=== PATIENT | female | born 1995 | race American Indian/Alaskan Native ===

== ENCOUNTER 2018-09-10 17:42 | Outpatient (CLI) | payer MEDICAID ==
[2018-09-10 19:01] VITALS: BP 102/55
--- NOTE | 2018-09-10 20:37 | Ultrasound Report ---
FINAL REPORT PROCEDURE: Limited obstetrical ultrasound. TECHNIQUE: Real-time limited sonographic examination was performed for evaluation of size, pos ition, heartbeat, fluid volume for each fetus with image documentation (1 or more fetuses). CPT 7681 5 HISTORY: Evaluate amniotic fluid index. COMPARISON: No prior studies are available for comparison. FINDINGS: There is a single viable fetus in cephalic presentation. Cardiac activity is documented at 139 beats per minute. The placenta is anterior in location, grade 2. The amniotic fluid volume appears normal. The amniotic fluid index measures 11.4 centimeters. IMPRESSION: Viable intrauterine fetus. Amniotic fluid index of 11.4 centimeters.
--- NOTE | 2018-09-10 20:38 | Ultrasound Report ---
FINAL REPORT PROCEDURE: Ultrasound biophysical profile without nonstress test. TECHNIQUE: Sonographic evaluation for breathing, movement, tone, and amniotic flui d volume was performed. CPT 85455 HISTORY: well being. COMPARISON: No prior studies are available for comparison. FINDINGS: Amniotic fluid volume: 2. breathin. movement: 2. tone: 2. Score: 8 of 8. IMPRESSION: Normal biophysical profile.
--- NOTE | 2018-09-11 06:01 | Progress Note ---
Assessment and Plan A: at 39 1/7 weeks gestation with reassuring surveillance (reactive NST, BPP 8/8, normal ROSINA). P: Discussed with patient in detail daily movement counting, need to perform, how to perform. Advised patient to follow up with [facility] this week (pt. has scheduled appointment). Warning signs and signs of labor discussed with pt. Subjective - Subjective Date of service: 09/10/18 Principal diagnosis: at 39 1/7 weeks gestation; decreased movement Interval history: Triage note for 09/10/18: 22 year old presents to L&D triage complaining of slightly decreased movement today. Patient states she is not performing daily movement counting. Patient states subjectively movement has been decreased today. Patient denies abdominal pain, regular contractions, vaginal bleeding, or leaking of fluid. Patient denies falls or abdominal trauma. Patient states she receives regular care at [facility]. Patient reports: no loss of fluid, no vaginal bleeding, no contractions Objective - Vital Signs Vital Signs: Vital Signs - 12hr 09/10/18 09/10/18 09/10/18 18:07 18:09 19:01 Temperature 98.3 F Pulse Rate 88 88 87 Respiratory 18 Rate Blood Pressure 113/58 102/55 Blood Pressure 113/58 [Left] 09/10/18 19:10 Temperature 98.9 F Pulse Rate Respiratory Rate Blood Pressure Blood Pressure [Left] - Exam Narrative Exam: Reactive NST. BPP 8/8. ROSINA 11.4 cm. Patient states she feels active movement while here in triage today. Abdomen: Present: normal appearance, soft. Absent: distention, tenderness, guarding, rigidity Uterus: Present: normal, fundal height above umbilicus FHR: category 1 Uterine Contraction Monitor Mode: External Cervical Dilatation: 3 (Exam by RN) Cervical Effacement Percentage: 50 station: -3 Uterine Contraction Pattern: Absent Extremities: normal
== END 2018-09-10 20:15 | disposition home or self-care (01) ==
LOC: TRG 17:42
PROVIDERS: ATTEND Obstetrics & Gynecology
DX: O47.1 False labor at or after 37 completed weeks of gestation (principal); Z3A.39 39 weeks gestation of pregnancy
CPT/HCPCS: 76815; 76819

== ENCOUNTER 2018-09-11 14:28 | Inpatient (IN) | payer MEDICAID ==
[2018-09-11] MEDS ORDERED: LACTATED RINGERS 1,000 ML ONE (16:09)
[2018-09-11] MEDS ORDERED: SUBLIMAZE IV ONE (16:20)
[2018-09-11] MEDS ORDERED: SUBLIMAZE ONE (16:27)
[2018-09-11 16:32] LABS: Basophils % (Auto) 0.1 % (0.0-1.8); Eosinophils % (Auto) 0.3 % (0.0-4.3); Hematocrit 34.9 % (30.3-42.9); Hemoglobin 11.8 gm/dl (10.1-14.3); Lymphocytes # (Auto) 1.5 K/mm3 (1.2-5.4); Lymphocytes % (Auto) 19.2 % (13.4-35.0); Mean Corpuscular HGB Conc 34 % (30-34); Mean Corpuscular Volume 94 fl (79-97); Monocytes # (Auto) 0.8 K/mm3 (0.0-0.8); Monocytes % (Auto) 10.2 % (0.0-7.3); Platelet Count 179 K/mm3 (140-440); Red Blood Count 3.71 M/mm3 (3.65-5.03); Red Cell Distribution Width 13.4 % (13.2-15.2)
[2018-09-11] MEDS ORDERED: NARCAN 2 MG/2 ML IV PRN (17:02)
[2018-09-11] MEDS ORDERED: MARCAINE 0.25% INFILTRATI ONE (17:09)
[2018-09-11] MEDS ORDERED: fentaNYL-BUPIV 2 MCG/ML-0.125% 200 MCG/100 ML BAG EPIDURAL ONE (17:13)
[2018-09-11] MEDS: LACTATED RINGERS 1,000 ML IV SCH ×2 (17:21→19:29)
--- NOTE | 2018-09-11 17:21 | Anesthesia Consultation ---
Anesthesia Consult and Med Hx - Airway Anesthetic Teeth Evaluation: Good ROM Head & Neck: Adequate Mental/Hyoid Distance: Adequate Mallampati Class: Class II Intubation Access Assessment: Good - Pulmonary Exam CTA: Yes - Cardiac Exam Cardiac Exam: RRR - Pre-Operative Health Status ASA Pre-Surgery Classification: ASA2 Proposed Anesthetic Plan: Epidural - Pulmonary Hx Smoking: No Hx Asthma: No Hx Respiratory Symptoms: No SOB: No COPD: No Home Oxygen Therapy: No Hx Pneumonia: No Hx Sleep Apnea: No - Cardiovascular System Hx Hypertension: No Hx Coronary Artery Disease: No Hx Heart Attack/AMI: No Hx Angina: No Hx Percutaneous Transluminal Coronary Angioplasty (PTCA): No Hx Cardia Arrhythmia: No Hx Pacemaker: No Hx Internal Defibrillator: No Hx Valvular Heart Disease: No Hx Heart Murmur: No - Central Nervous System Hx Neuromuscular Disorder: No Hx Seizures: No CVA: No Hx Back Pain: No Hx Psychiatric Problems: No - Gastrointestinal Hx Ulcer: No Hx Gastroesophageal Reflux Disease: No - Endocrine Hx Renal Disease: No Hx End Stage Renal Disease: No Hx Cirrhosis: No Hx Liver Disease: No Hx Insulin Dependent Diabetes: No Hx Non-Insulin Dependent Diabetes: No Hx Thyroid Disease: No Hx Hypothyroidism: No Hx Hyperthyroidism: No - Hematic Hx Anemia: No Hx Sickle Cell Disease: No - Other Systems Hx Alcohol Use: No Hx Substance Use: No Hx Cancer: No Hx Obesity: No
--- NOTE | 2018-09-11 17:22 | Anesthesia Day of Surgery ---
Anesthesia Day of Surgery - Day of Surgery Patient Examined: Yes Patient H&P Reviewed: Yes Patient is NPO: Yes Beta Blockers: No Cardiac Clearance: Yes Pulmonary Clearance: Yes Haile's Test: N/A
[2018-09-11] MEDS ORDERED: fentaNYL-BUPIV 2 MCG/ML-0.125% 200 MCG/100 ML BAG EPIDURAL SCH (18:00)
--- NOTE | 2018-09-11 18:02 | History and Physical Report ---
History of Present Illness Date of examination: 09/11/18 Date of admission: 09/11/18 16:37 Chief complaint: Contractions History of present illness: 22yo G 2 P 1 0 0 1 @ 39 weeks 2 days here with c/o UCs since 11am. She reports +FMs but denies VB or LOF. She is a [facility] pt who initiated care at 9 weeks gestation by LMP. 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 Result not documented), and anemia (on iron therapy). Labs: O pos, Antibody Screen neg, RI, VDRL NR, HBsAg neg, HIV neg, MSAFP neg, GBS neg. Past History Past Medical History: no pertinent history Past Surgical History: no surgical history PLANNING TECHNICIAN History: chlamydia, herpes, trichomonas Family/Genetic History: none Social history: single, lives with family, full code. denies: smoking, alcohol abuse, prescription drug abuse, IV drug use - Obstetrical History Expected Date of Delivery: 09/16/18 Actual Gestation: 39 Week(s) 2 Day(s) : 2 Para: 1 Hx # Term Pregnancies: 1 Number of Pregnancies: 0 Spontaneous Abortions: 0 Induced : 0 Number of Living Children: 1 #1 Infant Gender: Male year: [birth year]) Birthweight: 3.289 kg (7 lbs 4 oz) Method of Delivery: Vaginal Gestational age at delivery: 41 Complications: none Medications and Allergies Allergies Allergy/AdvReac Type Severity Reaction Status Date / Time acetaminophen [From Percocet] Allergy Hives Verified 09/11/18 15:12 oxycodone [From Percocet] Allergy Hives Verified 09/11/18 15:12 Home Medications Medication Instructions Recorded Confirmed Last Taken Type Pnv,Calcium 72/Iron/Folic Acid 1 tab PO DAILY 09/11/18 09/11/18 09/10/18 09:00 History [Pnv Plus Multivit Tab] Active Meds: Active Medications Ephedrine Sulfate (Ephedrine Sulfate) 10 mg IV Q2M PRN PRN Reason: Hypotension Last Admin: 09/11/18 17:40 Dose: 10 mg Documented by: Lactated Ringer's (Lactated Ringers) 1,000 mls @ 125 mls/hr IV DIRECT DWAIN Last Admin: 09/11/18 17:21 Dose: 125 mls/hr Documented by: Fentanyl/Bupivacaine/Sodium Chlor (Fentanyl-Bupiv 2 Mcg/Ml-0.125%) 200 mcg in 100 mls @ 12 mls/hr EPIDURAL TITR DWAIN; Protocol Naloxone HCl (Narcan 2 Mg/2 Ml) 0.2 mg IV Q5M PRN PRN Reason: Respiratory sedation Review of Systems All systems: negative - Vital Signs Vital signs: Vital Signs Pulse BP 88 109/69 09/11/18 15:18 09/11/18 15:18 Temp Pulse Resp BP Pulse Ox 98.3 F 78 16 108/61 99 09/11/18 15:44 09/11/18 17:58 09/11/18 17:14 09/11/18 17:52 09/11/18 17:58 - Physical Exam Genitourinary (Female): Positive: normal external genitalia, normal perenium. Negative: perineal/vulvar lesions - Obstetrical FHR: category 2 FHR comments: baseline 140, moderate variability, 15x15 accels, variable/early decels Cervical Dilatation: 6 (per RN) Cervical Effacement Percentage: 90 (per RN) station: -2 (per RN) Uterine Contraction Frequency (min): 2-3 Uterine Contraction Pattern: Regular Results Result Diagrams: 09/11/18 16:01 Abnormal lab results 09/11/18 Range/Units 16:01 [place] % (Auto) 10.2 H (0.0-7.3) % Seg Neutrophils % 70.2 H (40.0-70.0) % All other labs normal. Assessment and Plan - Patient Problems (1) 39 weeks gestation of Current Visit: Yes Status: Acute (2) Active labor at term Current Visit: Yes Status: Acute Plan to address problem: Admit to L&D with routine labor orders Anticipate vaginal delivery
[2018-09-11] MEDS ORDERED: XYLOCAINE 2% INFILTRATI ONE (18:29)
[2018-09-11] MEDS ORDERED: MINERAL OIL PO PRN (18:29)
[2018-09-11] MEDS ORDERED: BRETHINE IVP PRN (18:29)
[2018-09-11] MEDS ORDERED: BRETHINE SUB-Q PRN (18:29)
--- NOTE | 2018-09-11 20:11 | Event Note ---
Addendum entered and electronically signed by DEV SCHAFER CNM 09/11/18 21:08: AROM @ 19:57 Original Note: Date: 09/11/18 S: Pt in left lateral position. Family members at bedside. Reports adequate pain relief post epidural. O: FHR: baseline 115, moderate variability, 15x15 accels, early/variable/late decels Oxygen in place via NR mask Ctxs: q2-3 mins SVE 10/100/0/BBOW A: G 2 P 1 0 0 1 @ 39w2d Category II FHR AROM @ 20:10, moderate amount of fluid, light mecomium P: Continue current management Continue intrauterine resuscitation measures Anticipate imminent vaginal delivery
--- NOTE | 2018-09-11 20:51 | Procedure Note ---
OB Delivery Note - Delivery Date of Delivery: 09/11/18 (20:20) Surgeon: DEV SCHAFER (INNA) Estimated blood loss: 200cc - Vaginal Delivery presentation: compound (left posterior arm) Delivery position: OA Intrapartum events: meconium Delivery induction: none Delivery augmentation: rupture of membranes (AROM @ 19:57) Delivery monitor: external FHT, external uterine Route of delivery: (20:20) Delivery placenta: spontaneous (20:30) Delivery cord: 3 umbilical vessels Episiotomy: none Delivery laceration: other (skid dominguez - hemostatic; not repaired) Anesthesia: intravenous, epidural Delivery comments: of a vigorous term 7 lbs 6 oz male over intact perineum on 09/11/18 @ 20:20 with NICU team at bedside. Baby placed [id number] on maternal abdomen. After 7 mins, umbilical cord double-clamped by INNA Schafer and cut by the patient. Cord blood collected. Spontaneous delivery of placenta, Sandra-side presenting at 20:30. Moderate lochia noted. Fundal massage and IV Pitocin bolus initiated. Fundus F/ML/U-1. Placenta intact; was discarded. Vaginal skid dominguez present and hemostatic so not repaired. Mom and baby in stable condition. - Infant A at 1 minute: 8 at 5 minutes: 9 Infant Gender: Female (7 lbs 6 oz (3337 gm); 19 in)
[2018-09-11] MEDS ORDERED: TUCKS PAD TP PRN (20:52)
[2018-09-11] MEDS ORDERED: PHENERGAN PR PRN (20:52)
[2018-09-11] MEDS ORDERED: ZOFRAN IV PRN (20:52)
[2018-09-11] MEDS ORDERED: MILK OF MAGNESIA PO PRN (20:52)
[2018-09-11] MEDS ORDERED: BENADRYL PO PRN (20:52)
[2018-09-11] MEDS ORDERED: LANSINOH TP PRN (20:52)
[2018-09-11] MEDS ORDERED: PHENERGAN PO PRN (20:52)
[2018-09-11] MEDS ORDERED: DULCOLAX PR PRN (20:52)
[2018-09-11] MEDS ORDERED: SODIUM CHLORIDE FLUSH SYRINGE 10 ML IV NR (21:00)
[2018-09-11] MEDS: PITOCin/NS 20 UNIT/1000ML DRIP 20 UNITS/1,000 ML BAG IV SCH ×2 (21:54→21:57)
[2018-09-11] MEDS: IBUPROFEN PO SCH (21:55)
[2018-09-11] MEDS: NORCO 5/325 PO PRN (23:34)
[2018-09-12] MEDS: IBUPROFEN PO SCH ×3 (05:34→23:02)
--- NOTE | 2018-09-12 09:32 | Post Anesthesia Evaluation ---
- Post Anesthesia Evaluation Patient Participated: Yes Airway Patent: Yes Stable Respiratory Function: Yes Nausea/Vomiting: Yes Temp > 96.8F: Yes Pain Manageable: Yes Adequeate Hydration: Yes Anesthesia Complications: No Block Receding Appropriately: Yes Patient on Ventilator: No
--- NOTE | 2018-09-12 11:02 | Progress Note ---
Assessment and Plan (1) Normal Spontaneous Vaginal Delivery Current Visit: Yes Status: Acute PPD#1 s/p -stable Routine PP orders Anticipate discharge home 09/13/2018 Subjective - Subjective Date of service: 09/12/18 Principal diagnosis: PPD#1 s/p Interval history: See H&P and delivery note Patient reports: appetite normal, voiding normally, pain well controlled, flatus, ambulating normally : doing well, other (Breast/Bottle) Objective - Vital Signs Latest vital signs: Vital Signs Temp Pulse Resp BP BP Pulse Ox 09/12/18 09:00 97.8 F 72 18 110/50 09/12/18 05:28 98.1 F 68 18 97/50 09/11/18 23:30 97.3 F L 70 18 108/60 100 09/11/18 22:03 64 112/53 09/11/18 21:55 18 09/11/18 21:47 67 88 09/11/18 21:41 67 89 09/11/18 21:35 67 100 09/11/18 21:32 59 L 111/61 09/11/18 21:30 82 100 09/11/18 21:27 64 93 09/11/18 21:25 64 98 09/11/18 21:20 65 100 09/11/18 21:18 64 118/54 84 09/11/18 21:15 61 100 09/11/18 21:08 68 90 09/11/18 21:06 66 99 09/11/18 21:02 65 111/74 09/11/18 21:01 71 97 09/11/18 20:57 97.8 F 71 18 99 09/11/18 20:56 71 100 09/11/18 20:51 92 H 98 09/11/18 20:46 81 92 09/11/18 20:19 84 89 09/11/18 20:18 85 100 09/11/18 20:13 91 H 100 09/11/18 20:09 86 72 L 09/11/18 20:08 77 100 09/11/18 20:03 79 99 09/11/18 19:58 87 100 09/11/18 19:53 74 100 09/11/18 19:48 70 100 09/11/18 19:43 79 100 09/11/18 19:38 97.7 F 66 18 108/59 108/59 100 09/11/18 19:33 69 100 09/11/18 19:28 64 100 09/11/18 19:24 63 112/61 09/11/18 19:23 63 100 09/11/18 19:18 76 100 09/11/18 19:13 70 100 09/11/18 19:09 69 111/56 09/11/18 19:08 64 100 09/11/18 19:03 73 100 09/11/18 19:02 73 115/58 09/11/18 18:58 70 100 09/11/18 18:53 87 91/53 100 09/11/18 18:48 74 100 09/11/18 18:43 70 100 09/11/18 18:39 70 115/52 09/11/18 18:38 68 100 09/11/18 18:33 70 100 09/11/18 18:28 77 98 09/11/18 18:23 86 99 09/11/18 18:18 84 100 09/11/18 18:13 72 99 09/11/18 18:11 113 H 122/53 09/11/18 18:08 74 100 09/11/18 18:03 73 100 09/11/18 17:58 78 99 09/11/18 17:55 74 93 09/11/18 17:53 77 99 09/11/18 17:52 80 108/61 09/11/18 17:51 73 113/54 09/11/18 17:48 93 H 105/51 100 09/11/18 17:46 82 106/53 09/11/18 17:43 82 98 09/11/18 17:41 79 105/46 09/11/18 17:38 83 89/51 99 09/11/18 17:36 90 101/56 09/11/18 17:34 79 91/53 09/11/18 17:33 80 98 09/11/18 17:32 86 91/55 09/11/18 17:30 76 91/53 09/11/18 17:28 79 99 09/11/18 17:26 75 103/52 09/11/18 17:24 75 114/53 09/11/18 17:23 82 99 09/11/18 17:20 73 103/52 09/11/18 17:18 79 103/51 98 09/11/18 17:16 73 103/58 09/11/18 17:14 77 16 102/57 09/11/18 17:13 85 99 09/11/18 17:12 75 108/55 09/11/18 17:10 81 112/58 09/11/18 17:08 76 105/54 100 09/11/18 17:06 73 102/57 09/11/18 17:03 84 111/58 99 09/11/18 17:02 74 107/56 09/11/18 17:00 73 110/59 09/11/18 16:58 73 99 09/11/18 16:56 77 118/59 09/11/18 16:54 78 117/59 09/11/18 16:53 87 99 09/11/18 16:48 86 100 09/11/18 16:43 103 H 98 09/11/18 16:15 72 119/69 09/11/18 15:44 98.3 F 88 18 09/11/18 15:18 88 109/69 Intake and Output 09/11/18 09/12/18 09/12/18 23:59 07:59 15:59 Intake Total 272.917 240 120 Output Total 1000 600 Balance 272.917 -760 -480 Intake: IV 272.917 Lactated Ringers 1,000 ml 266.667 @ 125 mls/hr IV DIRECT DWAIN Rx#:[id number] PITOCin/NS 20 UNIT/1000ML 6.25 DRIP 20 units In 1,000 ml @ 125 mls/hr IV DIRECT DWAIN Rx#:[id number] Oral 120 Intake, Free Water 240 Output: Urine 1000 600 Void 1000 600 Other: Total, Intake Amount 120 Total, Output Amount 400 600 Estimated Blood Loss 200 - Exam Breasts: Present: normal, Cardiovascular: Present: Regular rate, Normal S1, Normal S2, No murmurs Lungs: Present: Clear to auscultation, Normal air movement Abdomen: Present: normal appearance, soft, normal bowel sounds. Absent: distention Vulva: both: normal Uterus: Present: normal, firm, fundal height at umbilicus Extremities: Present: normal Deep Tendon Reflex Grade: Normal +2 - Labs Labs: Abnormal lab results 09/11/18 Range/Units 16:01 [place] % (Auto) 10.2 H (0.0-7.3) % Seg Neutrophils % 70.2 H (40.0-70.0) %
--- NOTE | 2018-09-12 11:03 | Discharge Summary ---
< - Last Filed: 09/12/18 11:02> Providers - Providers Date of Admission: 09/11/18 16:37 Date of discharge: 09/13/18 Attending physician: RUFINO NEWMAN Primary care physician: CLIFF DIAZ MD Hospitalization Reason for admission: active labor, IUP at term Delivery: Procedure details: See H&P and delivery note Episiotomy: none Laceration: none Other procedures: none complications: none Discharge diagnosis: IUP at term delivered [place] baby: male Condition at discharge: Good Disposition: DC-01 TO HOME OR SELFCARE Plan - Provider Discharge Summary Activity: routine, no sex for 6 weeks, no heavy lifting 4 weeks, no strenuous exercise Diet: routine Instructions: routine Additional instructions: [] Smoking cessation referral if applicable(refer to patient education folder for contact #) [] Refer to [facility] Booklet Call your doctor immediately for: * Fever > 100.5 * Heavy vaginal bleeding ( >1 pad per hour) * Severe persistent headache * Shortness of breath * Reddened, hot, painful area to leg or breast * Drainage or odor from incision. * Keep incision clean and dry at all times and follow doctor's instructions regarding bathing/showering - Follow up plan Follow up: CLIFF DIAZ MD [Primary Care Provider] - 6 Weeks <RUFINO NEWMAN - Last Filed: 09/21/18 09:34> Providers - Providers Date of Admission: 09/11/18 16:37 Attending physician: RUFINO NEWMAN Primary care physician: CLIFF DIAZ MD Hospitalization Hospital course: Laboratory Tests 09/11/18 09/11/18 09/11/18 16:01 16:01 16:01 WBC 8.0 RBC 3.71 Hgb 11.8 Hct 34.9 MCV 94 MCH 32 MCHC 34 RDW 13.4 Plt Count 179 Lymph % (Auto) 19.2 [place] % (Auto) 10.2 H Eos % (Auto) 0.3 Baso % (Auto) 0.1 Lymph # 1.5 Smith # 0.8 Eos # 0.0 Baso # 0.0 Seg Neutrophils % 70.2 H Seg Neutrophils # 5.6 RPR Nonreactive Blood Type O POSITIVE Antibody Screen Negative 09/12/18 11:16 WBC RBC Hgb 9.8 L Hct 28.6 L D MCV MCH MCHC RDW Plt Count Lymph % (Auto) [place] % (Auto) Eos % (Auto) Baso % (Auto) Lymph # Smith # Eos # Baso # Seg Neutrophils % Seg Neutrophils # RPR Blood Type Antibody Screen - Discharge Diagnoses (1) Anemia associated with acute blood loss Status: Acute (2) Anemia due to acute blood loss Status: Acute Plan - Provider Discharge Summary Additional instructions: [] Smoking cessation referral if applicable(refer to patient education folder for contact #) [] Refer to [facility] Booklet Call your doctor immediately for: * Fever > 100.5 * Heavy vaginal bleeding ( >1 pad per hour) * Severe persistent headache * Shortness of breath * Reddened, hot, painful area to leg or breast * Drainage or odor from incision. * Keep incision clean and dry at all times and follow doctor's instructions regarding bathing/showering
[2018-09-12 11:43] LABS: Hematocrit 28.6 % (30.3-42.9); Hemoglobin 9.8 gm/dl (10.1-14.3)
[2018-09-12] MEDS: NORCO 5/325 PO PRN (13:01)
[2018-09-12] MEDS: PRENATAL VITAMIN PO SCH (13:03)
[2018-09-12] MEDS: FEOSOL PO SCH (13:03)
[2018-09-13] MEDS: IBUPROFEN PO SCH ×2 (06:20→13:04)
[2018-09-13] MEDS: FEOSOL PO SCH (10:00)
[2018-09-13] MEDS: PRENATAL VITAMIN PO SCH (10:00)
[2018-09-13] MEDS: NORCO 5/325 PO PRN (10:02)
[2018-09-13 18:28] VITALS: BP 108/55
== END 2018-09-13 17:22 | disposition home or self-care (01) | DRG 775 ==
LOC: TRG 14:28 → LD 16:37 → OB 22:38
PROVIDERS: ADMIT Obstetrics & Gynecology; ATTEND Obstetrics & Gynecology
PROC: 10E0XZZ Delivery of Products of Conception, External Approach (ICD-10-PCS; principal; 2018-09-11)
PROC: 10907ZC Drainage of Amniotic Fluid, Therapeutic from Products of Conception, Via Natural or Artificial Opening (ICD-10-PCS; 2018-09-11)
PROC: 3E0R3BZ Introduction of Anesthetic Agent into Spinal Canal, Percutaneous Approach (ICD-10-PCS; 2018-09-11)
PROC: 00HU33Z Insertion of Infusion Device into Spinal Canal, Percutaneous Approach (ICD-10-PCS; 2018-09-11)
DX: O32.6XX0 Maternal care for compound presentation, not applicable or unspecified (principal); O77.0 Labor and delivery complicated by meconium in amniotic fluid; O76 Abnormality in fetal heart rate and rhythm complicating labor and delivery; Z37.0 Single live birth; Z3A.39 39 weeks gestation of pregnancy; Z88.5 Allergy status to narcotic agent; Z88.8 Allergy status to other drugs, medicaments and biological substances; O71.89 Other specified obstetric trauma
CPT/HCPCS: 36415; 76815; 76819; 85014; 85018; 85025; 86592; 86850; 86900; 86901; G0378; A6250; J2590; J3010; J7120

== ENCOUNTER 2019-02-18 11:24 | Emergency (ER) | payer MEDICAID ==
[2019-02-18 11:31] VITALS: BP 111/51
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
--- NOTE | 2019-02-18 13:46 | Ultrasound Report ---
ULTRASOUND OBSTETRIC INDICATION / CLINICAL INFORMATION: abdominal pain, 7 weeks gest. TECHNIQUE: Transabdominal. Duplex ultrasound with spectral technique of both ovaries COMPARISON: None available. FINDINGS: GESTATIONAL SAC: Well-defined oval shape and intrauterine in location. Adjacent subchorionic implanta tion bleed measuring 3.7 x 2.5 cm YOLK SAC: No significant abnormality. EMBRYO/FETUS: No significant abnormality. - [place]-Rump Length = 2.66 cm = 9 weeks, 3 day(s). - Heart Rate, beats per minute (if present) = 180 ADNEXA: 2 simple right ovarian follicular cysts measuring 1.2 and 2.2 cm. Left ovary appears within n ormal limits without cyst or mass measuring 1.9 x 1.1 x 1.7 cm FREE FLUID: None. ADDITIONAL FINDINGS: Color Doppler and spectral waveforms are seen within both ovaries without torsio n. IMPRESSION: 1. Single, living intrauterine with estimated sonographic age of 9 weeks, 3 day(s). 2. Subchorionic hemorrhage/implantation bleed. 2. 2 simple right ovarian cyst measuring up to 2.2 cm. No free fluid or torsion Signer Name: Jose Rey MD Signed: 02/18/2019 1:42 PM Workstation Name: [id number]
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
--- NOTE | 2019-02-18 14:22 | Ultrasound Report ---
ULTRASOUND OBSTETRIC INDICATION / CLINICAL INFORMATION: abdominal pain, 7 weeks gest. Clinical Gestational Age (GA): 8 weeks 5 days TECHNIQUE: Transabdominal and Transvaginal. COMPARISON: None available. FINDINGS: GESTATIONAL SAC: Well-defined oval shape and intrauterine in location. YOLK SAC: No significant abnormality. EMBRYO/FETUS: No significant abnormality. - [place]-Rump Length = 2.7 cm = 9 weeks, 3 day(s). - Heart Rate, beats per minute (if present) = 179 ADNEXA: No significant abnormality. FREE FLUID: None. ADDITIONAL FINDINGS: None. IMPRESSION: 1. Single, living intrauterine with estimated sonographic age of 9 weeks, 3 day(s). Dates a re concordant. Signer Name: Danie Malloy MD Signed: 02/18/2019 2:18 PM Workstation Name: [id number]
[2019-02-18 14:24] LABS: Bilirubin,Urine NEG (Negative); Blood,Urine NEG (Negative); Color,Urine Yellow (Yellow); Mucus,Urine 3+ /HPF; Protein,Urine <15 mg/dL mg/dL (Negative); Urobilinogen,Urine < 2.0 mg/dL (<2.0)
== END 2019-02-18 14:48 | disposition home or self-care (01) ==
LOC: ED 11:24
DX: O41.8X10 Other specified disorders of amniotic fluid and membranes, first trimester, not applicable or unspecified (principal); O46.8X1 Other antepartum hemorrhage, first trimester; O9A.211 Injury, poisoning and certain other consequences of external causes complicating pregnancy, first trimester; S40.022A Contusion of left upper arm, initial encounter; S40.021A Contusion of right upper arm, initial encounter; Z79.899 Other long term (current) drug therapy; Z88.8 Allergy status to other drugs, medicaments and biological substances; Z88.5 Allergy status to narcotic agent; Z3A.09 9 weeks gestation of pregnancy; Y04.0XXA Assault by unarmed brawl or fight, initial encounter; Y93.89 Activity, other specified; Y92.89 Other specified places as the place of occurrence of the external cause; Y99.8 Other external cause status
CPT/HCPCS: 36415; 76801; 76817; 81001; 84703

== ENCOUNTER 2019-09-02 16:49 | Outpatient (CLI) | payer MEDICAID ==
[2019-09-02] MEDS ORDERED: TERBUTALINE 1 MG/1 ML INJ SUB-Q SCH (19:00)
[2019-09-02] MEDS ORDERED: LACTATED RINGERS 500 ML IV ONE (19:00)
[2019-09-02 20:34] VITALS: BP 119/58
== END 2019-09-02 20:55 | disposition home or self-care (01) ==
LOC: TRG 16:49
PROVIDERS: ATTEND Obstetrics & Gynecology
DX: O62.9 Abnormality of forces of labor, unspecified (principal); Z3A.36 36 weeks gestation of pregnancy
CPT/HCPCS: 59025; 96360; 96372; J3105; J7120

== ENCOUNTER 2019-09-07 16:22 | Outpatient (CLI) | payer MEDICAID ==
[2019-09-07 16:43] VITALS: BP 105/53
== END 2019-09-07 17:51 | disposition home or self-care (01) ==
LOC: TRG 16:22
PROVIDERS: ATTEND Obstetrics & Gynecology
DX: O47.1 False labor at or after 37 completed weeks of gestation (principal); Z3A.37 37 weeks gestation of pregnancy
CPT/HCPCS: 59025

== ENCOUNTER 2020-07-03 16:20 | Emergency (ER) | payer SELFPAY ==
--- NOTE | 2020-07-03 16:36 | Emergency Department Report ---
Blank Doc - Documentation Documentation: 24-year-old female that presents with vaginal bleeding. Stated is not sure if shes . This initial assessment/diagnostic orders/clinical plan/treatment(s) is/are subject to change based on patient's health status, clinical progression and re- assessment by fellow clinical providers in the ED. Further treatment and workup at subsequent clinical providers discretion. Patient/guardians urged not to elope from the ED as their condition may be serious if not clinically assessed and managed. Initial orders include: 1- Patient sent to [facility] for further evaluation and treatment 2- labs 3- UA
[2020-07-03 16:38] VITALS: BP 104/36
[2020-07-03 17:52] LABS: Bilirubin,Urine NEG (Negative); Blood,Urine NEG (Negative); Color,Urine Yellow (Yellow); Mucus,Urine 3+ /HPF; Protein,Urine <15 mg/dL mg/dL (Negative); Urobilinogen,Urine < 2.0 mg/dL (<2.0)
[2020-07-03 17:54] LABS: Basophils # (Auto) 0.1 K/mm3 (0.0-0.1); Eosinophils # (Auto) 0.1 K/mm3 (0.0-0.4); Eosinophils % (Auto) 1.6 % (0.0-4.3); Hematocrit 35.8 % (30.3-42.9); Hemoglobin 11.9 gm/dl (10.1-14.3); Lymphocytes # (Auto) 2.5 K/mm3 (1.2-5.4); Lymphocytes % (Auto) 46.8 % (13.4-35.0); Mean Corpuscular HGB Conc 33 % (30-34); Mean Corpuscular Volume 89 fl (79-97); Monocytes # (Auto) 0.5 K/mm3 (0.0-0.8); Monocytes % (Auto) 8.7 % (0.0-7.3); Platelet Count 306 K/mm3 (140-440); Red Blood Count 4.02 M/mm3 (3.65-5.03)
--- NOTE | 2020-07-03 18:50 | Emergency Department Report ---
HPI - General Chief Complaint: Vaginal Bleeding Time Seen by Provider: 07/03/20 16:35 - HPI HPI: This is a 24-year-old female who presents to the emergency department with a complaint of an abnormal menstrual cycle. The patient says that she finished her period 4 days ago but "it came back yesterday." The patient says that she has been having some intermittent pelvic/abdominal cramping, and increased vaginal bleeding, from her most recent menstrual cycle. At the time my examination the patient denies any abdominal discomfort. She says that the b leeding was light yesterday, became heavier this morning and early afternoon, and once again is light. Patient says that she usually has very irregular menstrual cycles. She denies any past medical history but previous records show that she may have been treated for anemia. Patient does have an COAL TRIMMER MACHINE OPERATOR but says "I have not seen them in a minute." She denies any fever, back pain, dysuria, vaginal discharge, nausea, vomiting, constipation. ED Past Medical Hx - Past Medical History Previous Medical History?: No Hx Hypertension: No Hx Heart Attack/AMI: No Hx Congestive Heart Failure: No Hx Diabetes: No Hx Deep Vein Thrombosis: No Hx Liver Disease: No Hx Renal Disease: No Hx Sickle Cell Disease: No Hx Seizures: No Hx Asthma: No Hx COPD: No Hx HIV: No - Surgical History Past Surgical History?: No Hx Pacemaker: No Hx Internal Defibrillator: No - Social History Smoking Status: Never Smoker - Medications Home Medications: Home Medications Medication Instructions Recorded Confirmed Last Taken Type Pnv,Calcium 72/Iron/Folic Acid 1 tab PO DAILY 09/11/18 09/09/19 1 Day Ago History [Pnv Plus Multivit Tab] ~09/08/19 Ferrous Sulfate [Slow Release Iron 250 mg PO DAILY 09/09/19 09/09/19 Unknown History 250 MG] Ferrous Sulfate [Ferrous Sulfate 324 mg PO BID #60 tablet. 09/10/19 Unknown Rx 324 MG] Ibuprofen [Motrin] 600 mg PO Q6H PRN #60 tablet 09/10/19 Unknown Rx ED Review of Systems ROS: Stated complaint: POSSIBLE MISCARRIAGE Other details as noted in HPI Comment: All other systems reviewed and negative Constitutional: denies: chills, fever Eyes: denies: eye pain, vision change ENT: denies: ear pain, throat pain Respiratory: denies: cough, shortness of breath Cardiovascular: denies: chest pain, palpitations Gastrointestinal: denies: vomiting, melena Genitourinary: abnormal menses, other (intermittent pelvic cramping) Musculoskeletal: denies: back pain, arthralgia Skin: denies: rash, lesions Neurological: denies: headache, weakness Physical Exam - Physical Exam Vital Signs: Vital Signs 07/03/20 16:37 Temperature 98.2 F Pulse Rate 72 Respiratory 18 Rate Blood Pressure 104/36 O2 Sat by Pulse 100 Oximetry Physical Exam: GENERAL: The patient is well-developed well-nourished. HENT: Normocephalic. Atraumatic. Patient has moist mucous membranes. EYES: Extraocular motions are intact. NECK: Supple. Trachea is midline. CHEST/LUNGS: Clear to auscultation. There is no respiratory distress noted. HEART/CARDIOVASCULAR: Regular. There is no tachycardia. ABDOMEN: Abdomen is soft, nontender. Patient has normal bowel sounds. There is no abdominal distention. SKIN: Skin is warm and dry. NEURO: The patient is awake, alert, and oriented. The patient is cooperative. Normal speech. MUSCULOSKELETAL: There is no tenderness or deformity. There is no limitation range of motion. ED Course Vital Signs 07/03/20 16:37 Temperature 98.2 F Pulse Rate 72 Respiratory 18 Rate Blood Pressure 104/36 O2 Sat by Pulse 100 Oximetry ED Medical Decision Making - Lab Data Result diagrams: 07/03/20 17:08 Lab Results 07/03/20 07/03/20 07/03/20 Range/Units 17:08 17:08 17:08 WBC 5.4 (4.5-11.0) K/mm3 RBC 4.02 (3.65-5.03) M/mm3 Hgb 11.9 (10.1-14.3) gm/dl Hct 35.8 (30.3-42.9) % MCV 89 (79-97) fl MCH 30 (28-32) pg MCHC 33 (30-34) % RDW 13.0 L (13.2-15.2) % Plt Count 306 (140-440) K/mm3 Lymph % (Auto) 46.8 H (13.4-35.0) % [place] % (Auto) 8.7 H (0.0-7.3) % Eos % (Auto) 1.6 (0.0-4.3) % Baso % (Auto) 1.0 (0.0-1.8) % Lymph # (Auto) 2.5 (1.2-5.4) K/mm3 [place]ama # (Auto) 0.5 (0.0-0.8) K/mm3 Eos # (Auto) 0.1 (0.0-0.4) K/mm3 Baso # (Auto) 0.1 (0.0-0.1) K/mm3 Seg Neutrophils % 41.9 (40.0-70.0) % Seg Neutrophils # 2.3 (1.8-7.7) K/mm3 HCG, Quant < 2 (0-4) mIU/mL Urine Color (Yellow) Urine Turbidity (Clear) Urine pH (5.0-7.0) Ur Specific [facility] (1.003-1.030) Urine Protein (Negative) mg/dL Urine Glucose (UA) (Negative) mg/dL Urine Ketones (Negative) mg/dL Urine Blood (Negative) Urine Nitrite (Negative) Urine Bilirubin (Negative) Urine Urobilinogen (<2.0) mg/dL Ur Leukocyte Esterase (Negative) Urine WBC (Auto) (0.0-6.0) /HPF Urine RBC (Auto) (0.0-6.0) /HPF U Epithel Cells (Auto) (0-13.0) /HPF Urine Mucus /HPF Blood Type O POSITIVE 07/03/20 Range/Units Unknown WBC (4.5-11.0) K/mm3 RBC (3.65-5.03) M/mm3 Hgb (10.1-14.3) gm/dl Hct (30.3-42.9) % MCV (79-97) fl MCH (28-32) pg MCHC (30-34) % RDW (13.2-15.2) % Plt Count (140-440) K/mm3 Lymph % (Auto) (13.4-35.0) % [place] % (Auto) (0.0-7.3) % Eos % (Auto) (0.0-4.3) % Baso % (Auto) (0.0-1.8) % Lymph # (Auto) (1.2-5.4) K/mm3 [place] # (Auto) (0.0-0.8) K/mm3 Eos # (Auto) (0.0-0.4) K/mm3 Baso # (Auto) (0.0-0.1) K/mm3 Seg Neutrophils % (40.0-70.0) % Seg Neutrophils # (1.8-7.7) K/mm3 HCG, Quant (0-4) mIU/mL Urine Color Yellow (Yellow) Urine Turbidity Clear (Clear) Urine pH 5.0 (5.0-7.0) Ur Specific [facility] 1.025 (1.003-1.030) Urine Protein <15 mg/dl (Negative) mg/dL Urine Glucose (UA) Neg (Negative) mg/dL Urine Ketones Neg (Negative) mg/dL Urine Blood Neg (Negative) Urine Nitrite Neg (Negative) Urine Bilirubin Neg (Negative) Urine Urobilinogen < 2.0 (<2.0) mg/dL Ur Leukocyte Esterase Tr (Negative) Urine WBC (Auto) 5.0 (0.0-6.0) /HPF Urine RBC (Auto) 2.0 (0.0-6.0) /HPF U Epithel Cells (Auto) 2.0 (0-13.0) /HPF Urine Mucus 3+ /HPF Blood Type - Medical Decision Making This patient presents to the emergency department with the complaint of having some vaginal bleeding and abdominal/pelvic cramping that appears consistent with a menstrual cycle, however, the patient recently finished her last menstrual cycle 4 days ago. On examination she does not have any reproducible tenderness to palpation of the abdomen. The abdomen is soft, nondistended and nontoxic in appearance. Patient's labs have been mostly unremarkable including CBC, urinalysis, and the patient is not . Her vital signs have been reassuring throughout her ED course including being afebrile. Despite her bleeding, the hemoglobin is 11.9. The patient says that the symptoms are intermittent and currently she only has some light vaginal bleeding and denies any current abdominal or pelvic cramping pain. For these reasons I did not feel that the patient requires any x-ray or ultrasound imaging at this time. She has been encouraged to follow-up with an COAL TRIMMER MACHINE OPERATOR in the next few days, but to return to the closest emergency department with any worsening of her symptoms or with any acute distress. Critical Care Time: No Critical care attestation.: If time is entered above; I have spent that time in minutes in the direct care of this critically ill patient, excluding procedure time. ED Disposition Clinical Impression: Dysfunctional uterine bleeding, Irregular menstrual cycle Disposition: TO HOME OR SELFCARE Is pt being admited?: No Condition: Stable Instructions: Abnormal Uterine Bleeding Additional Instructions: Please follow-up with your COAL TRIMMER MACHINE OPERATOR in the next few days. Return to the closest emergency department with any increased pelvic or abdominal pain, increased vaginal bleeding, worsening of your symptoms, or with any acute distress. Referrals: [facility] [Provider Group] - 2-3 Days [facility] [Provider Group] - 2-3 Days [facility] [Provider Group] - 2-3 Days Time of Disposition: 18:50
== END 2020-07-03 18:55 | disposition home or self-care (01) ==
LOC: ED 16:20
DX: N93.8 Other specified abnormal uterine and vaginal bleeding (principal); N92.6 Irregular menstruation, unspecified; Z79.899 Other long term (current) drug therapy
CPT/HCPCS: 36415; 81001; 84702; 85025; 86900; 86901; 99283

== ENCOUNTER 2020-09-05 09:20 | Emergency (ER) | payer SELFPAY ==
[2020-09-05 09:40] VITALS: BP 106/62
--- NOTE | 2020-09-05 10:02 | Emergency Department Report ---
ED General Adult HPI - General Chief complaint: Vaginal Bleeding Stated complaint: MENSTRAL CONCERNS Time Seen by Provider: 09/05/20 09:55 Source: patient Mode of arrival: Ambulatory Limitations: No Limitations - History of Present Illness Initial comments: 24-year-old female without significant past medical history presenting with chief complaint of vaginal bleeding. According to the patient for the past 3 months she has had 2 separate cycles per month. She states that this 1 began 2 days ago after the last 1 stopped a couple weeks ago. She does report some mild discomfort/cramping to the lower abdomen. Denies any fevers, abnormal vaginal discharge, dysuria, vomiting. She does report some mild diarrhea. Symptoms are moderate, nothing makes better or worse, has not followed up with [facility] W[facility] T[facility]ER yet. - Related Data Home Medications Medication Instructions Recorded Confirmed Last Taken Pnv,Calcium 72/Iron/Folic Acid 1 tab PO DAILY 09/11/18 09/09/19 1 Day Ago [Pnv Plus Multivit Tab] ~09/08/19 Ferrous Sulfate [Slow Release Iron 250 mg PO DAILY 09/09/19 09/09/19 Unknown 250 MG] Previous Rx's Medication Instructions Recorded Last Taken Type Ferrous Sulfate [Ferrous Sulfate 324 mg PO BID #60 tablet. 09/10/19 Unknown Rx 324 MG] Ibuprofen [Motrin] 600 mg PO Q6H PRN #60 tablet 09/10/19 Unknown Rx Naproxen [Naprosyn] 500 mg PO BID #20 tablet 09/05/20 Unknown Rx Allergies Allergy/AdvReac Type Severity Reaction Status Date / Time acetaminophen [From Percocet] Allergy Hives Verified 07/03/20 16:35 oxycodone [From Percocet] Allergy Hives Verified 07/03/20 16:35 ED Review of Systems ROS: Stated complaint: MENSTRAL CONCERNS Other details as noted in HPI Comment: All other systems reviewed and negative Constitutional: denies: chills, fever Eyes: denies: eye pain, eye discharge, vision change ENT: denies: ear pain, throat pain Respiratory: denies: cough, shortness of breath, wheezing Cardiovascular: denies: chest pain, palpitations Endocrine: no symptoms reported Gastrointestinal: denies: abdominal pain, nausea, diarrhea Genitourinary: abnormal menses. denies: urgency, dysuria, discharge Musculoskeletal: denies: back pain, joint swelling, arthralgia Skin: denies: rash, lesions Neurological: denies: headache, weakness, paresthesias Psychiatric: denies: anxiety, depression Hematological/Lymphatic: denies: easy bleeding, easy bruising ED Past Medical Hx - Past Medical History Previous Medical History?: No Hx Hypertension: No Hx Heart Attack/AMI: No Hx Congestive Heart Failure: No Hx Diabetes: No Hx Deep Vein Thrombosis: No Hx Liver Disease: No Hx Renal Disease: No Hx Sickle Cell Disease: No Hx Seizures: No Hx Asthma: No Hx COPD: No Hx HIV: No - Surgical History Past Surgical History?: No Hx Pacemaker: No Hx Internal Defibrillator: No - Social History Smoking Status: Never Smoker Substance Use Type: None - Medications Home Medications: Home Medications Medication Instructions Recorded Confirmed Last Taken Type Pnv,Calcium 72/Iron/Folic Acid 1 tab PO DAILY 09/11/18 09/09/19 1 Day Ago History [Pnv Plus Multivit Tab] ~09/08/19 Ferrous Sulfate [Slow Release Iron 250 mg PO DAILY 09/09/19 09/09/19 Unknown History 250 MG] Ferrous Sulfate [Ferrous Sulfate 324 mg PO BID #60 tablet. 09/10/19 Unknown Rx 324 MG] Ibuprofen [Motrin] 600 mg PO Q6H PRN #60 tablet 09/10/19 Unknown Rx Naproxen [Naprosyn] 500 mg PO BID #20 tablet 09/05/20 Unknown Rx ED Physical Exam - General Limitations: No Limitations General appearance: alert, in no apparent distress - Head Head exam: Present: atraumatic, normocephalic - Eye Eye exam: Present: normal appearance - ENT ENT exam: Present: mucous membranes moist - Neck Neck exam: Present: normal inspection - Respiratory Respiratory exam: Present: normal lung sounds bilaterally. Absent: respiratory distress - Cardiovascular Cardiovascular Exam: Present: regular rate, normal rhythm. Absent: systolic murmur, diastolic murmur, rubs, gallop - GI/Abdominal GI/Abdominal exam: Present: soft, normal bowel sounds. Absent: distended, tenderness, guarding - Extremities Exam Extremities exam: Present: normal inspection - Back Exam Back exam: Present: normal inspection - Neurological Exam Neurological exam: Present: alert, oriented X3 - Psychiatric Psychiatric exam: Present: normal affect, normal mood - Skin Skin exam: Present: warm, dry, intact, normal color. Absent: rash ED Course Vital Signs 09/05/20 09:37 Temperature 98.3 F Pulse Rate 74 Respiratory 18 Rate Blood Pressure 106/62 O2 Sat by Pulse 99 Oximetry ED Medical Decision Making - Lab Data Result diagrams: 09/05/20 10:22 - Radiology Data Radiology results: report reviewed 2.1 cm complex right ovarian cyst, otherwise negative. - Medical Decision Making Patient presents with 3 straight months of having 2 cycles per month, this 1 starting 2 days ago, described as bright to dark red bleeding utilizing about 6 tampons daily. Reports some abdominal cramping that is intermittent. On my exam patient is nontoxic and in no distress, ambulatory, normal heart and lungs, benign abdomen. Differential diagnoses include fibroids, cyst, endometriosis. We will repeat labs, check ultrasound but have advised that she ultimately will need [facility] W[facility] TENDER follow-up. Labs are stable and ultrasound shows a 2.1 cm complex ovarian cyst. Discussed outpatient follow-up with MARINE WATER TENDER as repeat imaging will be needed. Naproxen prescribed for pain to use as needed. - Differential Diagnosis fibroids, cyst, endometriosis Critical care attestation.: If time is entered above; I have spent that time in minutes in the direct care of this critically ill patient, excluding procedure time. ED Disposition Clinical Impression: Dysfunctional uterine bleeding, Right ovarian cyst Disposition: - TO HOME OR SELFCARE Is pt being admited?: No Condition: Good Instructions: Abnormal Uterine Bleeding, Ovarian Cyst Prescriptions: Naproxen [Naprosyn] 500 mg PO BID #20 tablet Referrals: PRIMARY MD MAYDA [Primary Care Provider] - 3-5 Days FRANDY SALAS MD [Staff Physician] - 3-5 Days Time of Disposition: 13:30
[2020-09-05 10:47] LABS: Basophils % (Auto) 0.5 % (0.0-1.8); Eosinophils # (Auto) 0.2 K/mm3 (0.0-0.4); Eosinophils % (Auto) 3.2 % (0.0-4.3); Hematocrit 38.4 % (30.3-42.9); Hemoglobin 12.8 gm/dl (10.1-14.3); Lymphocytes # (Auto) 2.2 K/mm3 (1.2-5.4); Lymphocytes % (Auto) 34.8 % (13.4-35.0); Mean Corpuscular HGB Conc 33 % (30-34); Mean Corpuscular Volume 89 fl (79-97); Monocytes # (Auto) 0.5 K/mm3 (0.0-0.8); Monocytes % (Auto) 8.1 % (0.0-7.3); Platelet Count 289 K/mm3 (140-440); Red Cell Distribution Width 12.7 % (13.2-15.2)
--- NOTE | 2020-09-05 13:09 | Ultrasound Report ---
ULTRASOUND PELVIS COMPLETE ULTRASOUND TRANSVAGINAL INDICATION / CLINICAL INFORMATION: pain. TECHNIQUE: Transabdominal and Transvaginal. Duplex Color Doppler used: Yes. COMPARISON: None available FINDINGS: UTERUS: Present. - Appearance (if present): No significant abnormality. - Size in cm (if present): 9.0 x 4.1 x 5.8. - Endometrial Complex (if present): No significant abnormality.. Thickness in cm (if measured) = 0.3 - Mass lesions: None. - Additional findings: 8mm nabothian cyst is noted in the posterior cervix. RIGHT ADNEXA: A complex predominantly cystic lesion in the right ovary with multiple internal septati ons is identified measuring 2.1 cm. Normal color Doppler blood flow. LEFT ADNEXA: No significant ovarian cyst or mass. Normal color Doppler blood flow. URINARY BLADDER: No significant abnormality. FREE FLUID: None. ADDITIONAL FINDINGS: None. IMPRESSION: Complex 2.1 cm right ovarian cyst. Consider follow-up in 6 weeks at a different stage of the menstru al cycle. Unremarkable uterus, endometrium and left ovary. Small nabothian cyst in the cervix. Signer Name: Jarocho Granda Jr, MD Signed: 09/05/2020 1:05 PM Workstation Name: [id number]
== END 2020-09-05 14:00 | disposition home or self-care (01) ==
LOC: ED 09:20
DX: N83.201 Unspecified ovarian cyst, right side (principal); Z79.899 Other long term (current) drug therapy; Z88.8 Allergy status to other drugs, medicaments and biological substances
CPT/HCPCS: 36415; 76830; 76856; 84703; 85025

== ENCOUNTER 2022-01-16 13:47 | Emergency (ER) | payer MEDICAID ==
[2022-01-16 14:13] VITALS: BP 102/70
[2022-01-16] MEDS ORDERED: LIDOCAINE-MPF (1%) 10 MG/1 ML VIAL 5 ML INFILTRATI ONE (16:10)
[2022-01-16] MEDS ORDERED: dexAMETHasone 20 MG/5 ML VIAL IM ONE (16:11)
--- NOTE | 2022-01-16 16:14 | Emergency Department Report ---
ED ENT HPI - General Chief complaint: Dental/Oral Stated complaint: MOUTH HAS AN ABSCESS Source: patient Mode of arrival: Ambulatory Limitations: No Limitations - History of Present Illness Initial comments: 26-year-old female presents to the ED complaining of left jaw swollen and toothache. Patient states that she has a fracture to an has been unable to go to the dentist. She states that she noticed a small white pustular near her lower molar and attempt some [id number] home remedy over the last 2 days . Patient states that the swelling has increased . Patient states that she needs to have tooth extracted by an oral surgeon. Patient denies any drooling, difficulty swallowing or painful swallowing. Patient is alert and oriented x3. No acute distress noted. No ill appearance noted. MD complaint: tooth pain Onset/Timin -: Gradual, days(s) Severity: moderate Severity scale (0 -10): 8 Quality: aching Improves with: none Worsens with: none Context- Dental: poor dental care Associated Symptoms: fever - Related Data Home Medications Medication Instructions Recorded Confirmed Last Taken Pnv,Calcium 72/Iron/Folic Acid 1 tab PO DAILY 09/11/18 09/09/19 1 Day Ago [Pnv Plus Multivit Tab] ~09/08/19 Ferrous Sulfate [Slow Release Iron 250 mg PO DAILY 09/09/19 09/09/19 Unknown 250 MG] Previous Rx's Medication Instructions Recorded Last Taken Type Ferrous Sulfate [Ferrous Sulfate 324 mg PO BID #60 tablet. 09/10/19 Unknown Rx 324 MG] Ibuprofen [Motrin] 600 mg PO Q6H PRN #60 tablet 09/10/19 Unknown Rx Naproxen [Naprosyn] 500 mg PO BID #20 tablet 09/05/20 Unknown Rx Clindamycin [Clindamycin CAP] 600 mg PO BID 10 Days #20 capsule 01/16/22 Unknown Rx Ibuprofen [Motrin] 800 mg PO Q8HR PRN 15 Days #30 01/16/22 Unknown Rx tablet predniSONE [Deltasone] 50 mg PO QDAY 3 Days #3 tab 01/16/22 Unknown Rx Allergies Allergy/AdvReac Type Severity Reaction Status Date / Time acetaminophen [From Percocet] Allergy Hives Verified 07/03/20 16:35 oxycodone [From Percocet] Allergy Hives Verified 07/03/20 16:35 ED Dental HPI - General Chief complaint: Dental/Oral Stated complaint: MOUTH HAS AN ABSCESS Source: patient Mode of arrival: Ambulatory Limitations: No Limitations - Related Data Home Medications Medication Instructions Recorded Confirmed Last Taken Pnv,Calcium 72/Iron/Folic Acid 1 tab PO DAILY 09/11/18 09/09/19 1 Day Ago [Pnv Plus Multivit Tab] ~09/08/19 Ferrous Sulfate [Slow Release Iron 250 mg PO DAILY 09/09/19 09/09/19 Unknown 250 MG] Previous Rx's Medication Instructions Recorded Last Taken Type Ferrous Sulfate [Ferrous Sulfate 324 mg PO BID #60 tablet. 09/10/19 Unknown Rx 324 MG] Ibuprofen [Motrin] 600 mg PO Q6H PRN #60 tablet 09/10/19 Unknown Rx Naproxen [Naprosyn] 500 mg PO BID #20 tablet 09/05/20 Unknown Rx Clindamycin [Clindamycin CAP] 600 mg PO BID 10 Days #20 capsule 01/16/22 Unknown Rx Ibuprofen [Motrin] 800 mg PO Q8HR PRN 15 Days #30 01/16/22 Unknown Rx tablet predniSONE [Deltasone] 50 mg PO QDAY 3 Days #3 tab 01/16/22 Unknown Rx Allergies Allergy/AdvReac Type Severity Reaction Status Date / Time acetaminophen [From Percocet] Allergy Hives Verified 07/03/20 16:35 oxycodone [From Percocet] Allergy Hives Verified 07/03/20 16:35 ED Review of Systems ROS: Stated complaint: MOUTH HAS AN ABSCESS Other details as noted in HPI Constitutional: denies: chills, fever Eyes: denies: eye pain, eye discharge, vision change ENT: dental pain. denies: ear pain, throat pain Respiratory: denies: cough, shortness of breath, wheezing Cardiovascular: denies: chest pain, palpitations Endocrine: no symptoms reported Gastrointestinal: denies: abdominal pain, nausea, diarrhea Genitourinary: denies: urgency, dysuria, discharge Musculoskeletal: denies: back pain, joint swelling, arthralgia Skin: denies: rash, lesions Neurological: denies: headache, weakness, paresthesias Psychiatric: denies: anxiety, depression Hematological/Lymphatic: denies: easy bleeding, easy bruising ED Past Medical Hx - Past Medical History Previous Medical History?: No Hx Hypertension: No Hx Heart Attack/AMI: No Hx Congestive Heart Failure: No Hx Diabetes: No Hx Deep Vein Thrombosis: No Hx Liver Disease: No Hx Renal Disease: No Hx Sickle Cell Disease: No Hx Seizures: No Hx Asthma: No Hx COPD: No Hx HIV: No - Surgical History Past Surgical History?: No Hx Pacemaker: No Hx Internal Defibrillator: No - Social History Smoking Status: Never Smoker Substance Use Type: None - Medications Home Medications: Home Medications Medication Instructions Recorded Confirmed Last Taken Type Pnv,Calcium 72/Iron/Folic Acid 1 tab PO DAILY 09/11/18 09/09/19 1 Day Ago History [Pnv Plus Multivit Tab] ~09/08/19 Ferrous Sulfate [Slow Release Iron 250 mg PO DAILY 09/09/19 09/09/19 Unknown His tory 250 MG] Ferrous Sulfate [Ferrous Sulfate 324 mg PO BID #60 tablet. 09/10/19 Unknown Rx 324 MG] Ibuprofen [Motrin] 600 mg PO Q6H PRN #60 tablet 09/10/19 Unknown Rx Naproxen [Naprosyn] 500 mg PO BID #20 tablet 09/05/20 Unknown Rx Clindamycin [Clindamycin CAP] 600 mg PO BID 10 Days #20 capsule 01/16/22 Unknown Rx Ibuprofen [Motrin] 800 mg PO Q8HR PRN 15 Days #30 01/16/22 Unknown Rx tablet predniSONE [Deltasone] 50 mg PO QDAY 3 Days #3 tab 01/16/22 Unknown Rx ED Physical Exam - General Limitations: No Limitations General appearance: alert, in no apparent distress - Head Head exam: Present: atraumatic, normocephalic - Eye Eye exam: Present: normal appearance - ENT ENT exam: Present: mucous membranes moist - Neck Neck exam: Present: normal inspection - Respiratory Respiratory exam: Present: normal lung sounds bilaterally. Absent: respiratory distress - Cardiovascular Cardiovascular Exam: Present: regular rate, normal rhythm. Absent: systolic murmur, diastolic murmur, rubs, gallop - GI/Abdominal GI/Abdominal exam: Present: soft, normal bowel sounds - Extremities Exam Extremities exam: Present: normal inspection - Back Exam Back exam: Present: normal inspection - Neurological Exam Neurological exam: Present: alert, oriented X3 - Psychiatric Psychiatric exam: Present: normal affect, normal mood - Skin Skin exam: Present: warm, dry, intact, normal color. Absent: rash ED Course Vital Signs 01/16/22 14:10 Temperature 99.2 F Pulse Rate 64 Respiratory 20 Rate Blood Pressure 102/70 [Right] O2 Sat by Pulse 100 Oximetry ED Medical Decision Making - Medical Decision Making 26-year-old female presents to the ED complaining of left jaw swollen and to othache. Patient states that she has a fracture to an has been unable to go to the dentist. She states that she noticed a small white pustular near her lower molar and attempt some [id number] home remedy over the last 2 days . Patient states that the swelling has increased . Patient states that she needs to have tooth extracted by an oral surgeon. Patient denies any drooling, difficulty swallowing or painful swallowing. Patient is alert and oriented x3. No acute distress noted. No ill appearance noted. Physical examination patient has multiple dental caries . Moderate swelling noted around tooth #30. No trismus noted. Uvula midline. Rechecked the patient is resting quietly quietly and comfortable and feeling better. I discussed the results of diagnostic study, my clinical impression and the plan for further treatment with the patient. Patient agrees with plan and discharge at this present time. All question addressed. I have given the patient instruction regarding a diagnosis ,expectation ,follow- up and return precaution. I explained to the patient that emergent condition may arise and to return to the ED for new worsen and any new persisting condition. I have explained the importance of following up with the primary care physician or referral physician listed below has instructed. The patient verbalized understanding of discharge instruction. Critical care attestation.: If time is entered above; I have spent that time in minutes in the direct care of this critically ill patient, excluding procedure time. ED Disposition Clinical Impression: Dental abscess Disposition: 01 HOME / SELF CARE / HOMELESS Is pt being admited?: No Does the pt Need Aspirin: No Condition: Stable Instructions: Dental Abscess, [id number], Preventive Dental Care, Adult Additional Instructions: Take medication as prescribed Return to the ED for any worsening symptom Prescriptions: Clindamycin [Clindamycin CAP] 600 mg PO BID 10 Days #20 capsule predniSONE [Deltasone] 50 mg PO QDAY 3 Days #3 tab Ibuprofen [Motrin] 800 mg PO Q8HR PRN 15 Days #30 tablet PRN Reason: Pain, Mild (1-3) Referrals: [facility], [facility] [Outside] - 3-5 Days [facility] [Outside] - 3-5 Days Forms: Work/School Release Form(ED) Time of Disposition: 16:21
== END 2022-01-16 16:30 | disposition home or self-care (01) ==
LOC: ED 13:47
DX: K04.7 Periapical abscess without sinus (principal); Z91.09 Other allergy status, other than to drugs and biological substances; Z79.899 Other long term (current) drug therapy
CPT/HCPCS: 96372; 99282; J0696; J1100; J3490